=== PATIENT | male | born 1940 | race African-American/Black ===

== ENCOUNTER 2017-08-11 03:45 | Emergency (ER) | payer MEDICARE ==
[2017-08-11 05:03] LABS: #Eosinphils 0.1 thou/uL (0.0-0.7); #Lymphocytes 1.4 thou/uL (1.20-3.40); #Monocytes 0.5 thou/uL (0.11-0.59); #Neutrophils 1.8 thou/uL (1.40-6.50); %Basophils 1.1 % (0.0-1.0); %Eosinophils 1.6 % (0.0-10.0); %Lymphocytes 37.9 % (21.0-51.0); Hematocrit 36.5 % (42.0-52.0); Mean Platelet Volume 7.3 fL (7.4-10.4); Red Blood Cell (RBC) Count 3.76 mill/uL (4.70-6.10); White Blood Cell (WBC) Count 3.8 thou/uL (4.8-10.8)
[2017-08-11 05:13] LABS: Bilirubin Negative (Negative); Blood, Urine Negative (Negative); Glucose, Urine (Dipstick) Negative (Negative); Ketone, Urine Negative (Negative)
[2017-08-11 05:14] LABS: Nitrite Negative (Negative); Protein, Urine (Dipstick) Negative (Neg-Trace)
[2017-08-11 05:14] LABS: Anion Gap 12 mmol/L (10-20); BUN (Urea Nitrogen) 9 mg/dL (8.4-25.7); Calc. Creatinine Clearance 0 mL/min (70-130); Calcium 9.8 mg/dL (7.8-10.44); Carbon Dioxide 25 mmol/L (23-31); Chloride 105 mmol/L (98-107); Estimated GFR-MDRD Greater than 90
[2017-08-11 05:32] LABS: Bacteria/HPF None Seen HPF (None Seen); Hyaline Casts/LPF 0-3 HYALINE CAST LPF (0-3 Hyaline); Squamous Epithelial 0-3 HPF (0-3); WBC/HPF 0-3 HPF (0-3)
== END 2017-08-11 07:14 | disposition home or self-care (01) ==
LOC: ERS 03:45
DX: Z03.89 Encounter for observation for other suspected diseases and conditions ruled out (principal); E78.5 Hyperlipidemia, unspecified; I10 Essential (primary) hypertension; F03.90 Unspecified dementia, unspecified severity, without behavioral disturbance, psychotic disturbance, mood disturbance, and anxiety; F41.9 Anxiety disorder, unspecified; F31.9 Bipolar disorder, unspecified; F20.9 Schizophrenia, unspecified; N40.0 Benign prostatic hyperplasia without lower urinary tract symptoms; Z79.82 Long term (current) use of aspirin; Z79.899 Other long term (current) drug therapy
CPT/HCPCS: 36415; 80048; 81003; 81015; 85025; 99285

== ENCOUNTER 2017-08-13 02:49 | Emergency (ER) | payer MEDICARE ==
[2017-08-13 03:32] LABS: #Lymphocytes 1.3 thou/uL (1.20-3.40); #Monocytes 0.5 thou/uL (0.11-0.59); #Neutrophils 1.6 thou/uL (1.40-6.50); %Basophils 0.8 % (0.0-1.0); %Eosinophils 1.3 % (0.0-10.0); %Lymphocytes 38.7 % (21.0-51.0); %Monocytes 13.5 % (0.0-10.0); Hematocrit 36.4 % (42.0-52.0); Red Blood Cell (RBC) Count 3.75 mill/uL (4.70-6.10); White Blood Cell (WBC) Count 3.5 thou/uL (4.8-10.8)
[2017-08-13 03:54] LABS: ALT (SGPT) 12 U/L (8-55); AST (SGOT) 23 U/L (5-34); Acetaminophen Less than 6.0 mcg/mL (10.0-30.0); Alkaline Phosphatase 50 U/L (40-150); Anion Gap 12 mmol/L (10-20); BUN (Urea Nitrogen) 10 mg/dL (8.4-25.7); Bilirubin, Total 0.9 mg/dL (0.2-1.2); Calc. Creatinine Clearance 0 mL/min (70-130); Calcium 9.8 mg/dL (7.8-10.44); Carbon Dioxide 24 mmol/L (23-31); Chloride 105 mmol/L (98-107); Estimated GFR-MDRD Greater than 90; Globulin 2.8 g/dL (2.4-3.5); Protein, Total 6.4 g/dL (5.8-8.1); Salicylate Less than 8.0 mg/dL (15.0-30.0)
[2017-08-13 03:58] LABS: Troponin I 0.016 ng/mL (< 0.028)
[2017-08-13 05:24] LABS: Bilirubin Negative (Negative); Blood, Urine Negative (Negative); Glucose, Urine (Dipstick) Negative (Negative); Ketone, Urine Negative (Negative); Nitrite Negative (Negative); Protein, Urine (Dipstick) Negative (Neg-Trace)
[2017-08-13 05:44] LABS: Bacteria/HPF None Seen HPF (None Seen); Hyaline Casts/LPF 4-6 HYALINE CAST LPF (0-3 Hyaline); RBC/HPF 0-3 HPF (0-3); Squamous Epithelial 0-3 HPF (0-3)
[2017-08-13 06:06] LABS: Amphetamine Not Detected (NotDetected); Methadone Not Detected (NotDetected); Methamphetamine Not Detected (NotDetected)
[2017-08-13] MEDS ORDERED: SODIUM CHLORIDE 0.9% IVPB SCH (06:15)
[2017-08-13] MEDS ORDERED: VALPROATE SODIUM IVPB SCH (06:15)
--- NOTE | 2017-08-17 14:20 | EKG ---
Test Reason : Blood Pressure : / mmHG Vent. Rate : 054 BPM Atrial Rate : 054 BPM P-R Int : 164 ms QRS Dur : 108 ms QT Int : 440 ms P-R-T Axes : 014 -20 016 degrees QTc Int : 417 ms Sinus bradycardia Nonspecific T wave abnormality Abnormal ECG Confirmed by PATRICK DEL REAL, MARTHA Lehman ([id number]), social media editor HAILEY SALAZAR ([id number]) on 08/17/2017 2:20:35 PM Referred By: Confirmed By:MARTHA NGUYEN MD
== END 2017-08-13 08:34 | disposition home or self-care (01) ==
LOC: ERS 02:49
DX: R41.82 Altered mental status, unspecified (principal); E78.5 Hyperlipidemia, unspecified; F01.50 Vascular dementia, unspecified severity, without behavioral disturbance, psychotic disturbance, mood disturbance, and anxiety; F31.9 Bipolar disorder, unspecified; F41.9 Anxiety disorder, unspecified; F20.9 Schizophrenia, unspecified; I10 Essential (primary) hypertension; I70.90 Unspecified atherosclerosis; M16.10 Unilateral primary osteoarthritis, unspecified hip; Z79.899 Other long term (current) drug therapy; Z79.82 Long term (current) use of aspirin
CPT/HCPCS: 36415; 80053; 80164; 80306; 80307; 81003; 81015; 82550; 82553; 84443; 84484; 85025; 93005; 96365; J7050

== ENCOUNTER 2017-08-17 10:45 | Emergency (ER) | payer MEDICARE ==
[2017-08-17 12:29] LABS: #Lymphocytes 1.2 thou/uL (1.20-3.40); #Monocytes 0.5 thou/uL (0.11-0.59); #Neutrophils 1.9 thou/uL (1.40-6.50); %Basophils 1.2 % (0.0-1.0); %Eosinophils 1.1 % (0.0-10.0); %Lymphocytes 32.6 % (21.0-51.0); %Monocytes 14.2 % (0.0-10.0); Hematocrit 38.3 % (42.0-52.0); Mean Platelet Volume 6.6 fL (7.4-10.4); Red Blood Cell (RBC) Count 3.95 mill/uL (4.70-6.10); White Blood Cell (WBC) Count 3.7 thou/uL (4.8-10.8)
[2017-08-17 12:56] LABS: ALT (SGPT) 19 U/L (8-55); AST (SGOT) 30 U/L (5-34); Acetaminophen Less than 6.0 mcg/mL (10.0-30.0); Alkaline Phosphatase 54 U/L (40-150); Anion Gap 12 mmol/L (10-20); BUN (Urea Nitrogen) 9 mg/dL (8.4-25.7); CK (CPK) 374 U/L (30-200); Calc. Creatinine Clearance 0 mL/min (70-130); Calcium 10.2 mg/dL (7.8-10.44); Carbon Dioxide 27 mmol/L (23-31); Chloride 104 mmol/L (98-107); Estimated GFR-MDRD Greater than 90; Globulin 2.8 g/dL (2.4-3.5); Protein, Total 6.6 g/dL (5.8-8.1); Salicylate Less than 8.0 mg/dL (15.0-30.0)
[2017-08-17 13:34] LABS: Bilirubin Negative (Negative); Blood, Urine Negative (Negative); Glucose, Urine (Dipstick) Negative (Negative); Ketone, Urine Negative (Negative); Nitrite Negative (Negative); Protein, Urine (Dipstick) Negative (Neg-Trace)
[2017-08-17 13:49] LABS: Amphetamine Not Detected (NotDetected); Methadone Not Detected (NotDetected); Methamphetamine Not Detected (NotDetected)
[2017-08-17] MEDS ORDERED: Simvastatin 5 MG TAB PO SCH (22:00)
[2017-08-17] MEDS ORDERED: Cilostazol 100 MG TAB PO SCH (22:00)
[2017-08-17] MEDS ORDERED: CeleCOXIB 100 MG CAP PO SCH (22:00)
[2017-08-17] MEDS ORDERED: Polyethylene Glycol 3350 17 GM Packet PO SCH (22:00)
[2017-08-18] MEDS ORDERED: Lorazepam 1 MG TAB ONE ×3 (06:49→14:33)
[2017-08-18] MEDS ORDERED: Aripiprazole 15 MG TAB PO SCH (09:00)
[2017-08-18] MEDS ORDERED: tiZANidine HCl 4 MG TAB PO SCH (09:00)
[2017-08-18] MEDS ORDERED: Metoprolol Tartrate 25 MG TAB PO SCH (09:00)
[2017-08-18] MEDS ORDERED: Lisinopril 10 MG TAB PO SCH (09:00)
[2017-08-18] MEDS ORDERED: Fluticasone Propionate Nasal Spray 16 gm Bottle NASAL SCH (09:00)
[2017-08-18] MEDS ORDERED: Tamsulosin HCl 0.4 MG CAP PO SCH (09:00)
[2017-08-18] MEDS ORDERED: Cilostazol 100 MG TAB PO SCH (09:00)
[2017-08-18] MEDS ORDERED: risperiDONE 0.25 MG TAB PO SCH (09:00)
[2017-08-18] MEDS ORDERED: Folic Acid/Vit B Comp W-C PO SCH (09:00)
[2017-08-18] MEDS ORDERED: Lorazepam 0.5 MG TAB PO SCH (12:00)
[2017-08-18] MEDS ORDERED: Metoprolol Tartrate 25 MG TAB ONE ×2 (12:01→12:04)
[2017-08-18] MEDS ORDERED: CeleCOXIB 100 MG CAP PO SCH (21:00)
[2017-08-18] MEDS ORDERED: Simvastatin 5 MG TAB PO SCH (21:00)
[2017-08-19] MEDS ORDERED: Metoprolol Tartrate 25 MG TAB ONE (11:30)
[2017-08-19] MEDS ORDERED: tiZANidine HCl 4 MG TAB PO SCH (13:15)
[2017-08-20] MEDS ORDERED: Lorazepam 1 MG TAB ONE (12:56)
[2017-08-20] MEDS ORDERED: Aspirin 81 mg Enteric Coated Tablet ONE (12:57)
[2017-08-20] MEDS ORDERED: Metoprolol Tartrate 25 MG TAB ONE (12:57)
[2017-08-20] MEDS ORDERED: risperiDONE 1 MG TAB ONE (12:57)
[2017-08-21] MEDS ORDERED: Lorazepam 1 MG TAB ONE (13:18)
[2017-08-21] MEDS ORDERED: Metoprolol Tartrate 25 MG TAB ONE (13:18)
[2017-08-22] MEDS ORDERED: Lorazepam 1 MG TAB ONE (04:16)
[2017-08-22] MEDS ORDERED: Ibuprofen 200 MG TAB ONE (05:13)
[2017-08-22] MEDS ORDERED: Metoprolol Tartrate 5 MG/5 ML VIAL ONE (10:22)
[2017-08-22] MEDS ORDERED: Metoprolol Tartrate 25 MG TAB ONE (10:22)
[2017-08-22 10:36] LABS: Hematocrit 38.3 % (42.0-52.0); Mean Platelet Volume 7.7 fL (7.4-10.4); Red Blood Cell (RBC) Count 3.86 mill/uL (4.70-6.10); White Blood Cell (WBC) Count 2.7 thou/uL (4.8-10.8)
[2017-08-22 11:00] LABS: ALT (SGPT) 17 U/L (8-55); AST (SGOT) 34 U/L (5-34); Alkaline Phosphatase 52 U/L (40-150); Anion Gap 10 mmol/L (10-20); BUN (Urea Nitrogen) 10 mg/dL (8.4-25.7); Bilirubin, Total 0.9 mg/dL (0.2-1.2); Calc. Creatinine Clearance 0 mL/min (70-130); Calcium 10.3 mg/dL (7.8-10.44); Carbon Dioxide 29 mmol/L (23-31); Chloride 103 mmol/L (98-107); Estimated GFR-MDRD Greater than 90; Globulin 2.8 g/dL (2.4-3.5); Protein, Total 6.5 g/dL (5.8-8.1)
[2017-08-22 11:14] LABS: Band 1 % (5-11); Neutrophil 36 % (42-75); Reactive Lymphocytes 1 % (0-10)
[2017-08-23] MEDS ORDERED: Metoprolol Tartrate 25 MG TAB ONE (08:59)
== END 2017-08-23 18:38 ==
LOC: ERS 10:45
DX: F22 Delusional disorders (principal); E78.5 Hyperlipidemia, unspecified; F20.9 Schizophrenia, unspecified; F31.9 Bipolar disorder, unspecified; F41.9 Anxiety disorder, unspecified; F01.50 Vascular dementia, unspecified severity, without behavioral disturbance, psychotic disturbance, mood disturbance, and anxiety; I10 Essential (primary) hypertension; I70.90 Unspecified atherosclerosis; M19.90 Unspecified osteoarthritis, unspecified site; N40.0 Benign prostatic hyperplasia without lower urinary tract symptoms; Z79.899 Other long term (current) drug therapy; Z79.82 Long term (current) use of aspirin; Z79.52 Long term (current) use of systemic steroids
CPT/HCPCS: 36415; 80053; 80306; 80307; 81003; 82550; 84443; 85025; 99285

== ENCOUNTER 2018-01-17 05:58 | Emergency (ER) | payer MEDICAID, MEDICARE ==
[2018-01-17 07:27] LABS: Bilirubin Negative (Negative); Blood, Urine Negative (Negative); Clarity CLEAR (Clear); Glucose, Urine (Dipstick) Negative (Negative); Leukocyte Trace (Negative); Nitrite Negative (Negative); Protein, Urine (Dipstick) Negative (Neg-Trace); Specific Gravity, Urine 1.014 (1.002-1.036)
[2018-01-17 07:28] LABS: Bacteria/HPF None Seen HPF (None Seen); Hyaline Casts/LPF 0-3 HYALINE CAST LPF (0-3 Hyaline); RBC/HPF 0-3 HPF (0-3); Squamous Epithelial None Seen HPF (0-3); WBC/HPF 0-3 HPF (0-3)
[2018-01-17 07:29] LABS: Eosinophils 2 % (0-10); Lymphocytes 40 % (21-51); MDiff Complete? YES; Mean Corpuscular HGB CONC 33.3 g/dL (32.0-36.0); Mean Corpuscular Hemoglobin 32.4 pg (27.0-31.0); Mean Corpuscular Volume 97.4 fl (80.0-94.0); Mean Platelet Volume 7.7 fL (7.4-10.4); Monocytes 13 % (0-10); Neutrophil 45 % (42-75); PLT Morphology Comment Appears Decreased; Platelet Count 108 thou/uL (130-400); RBC Distribution Width 12.6 % (11.5-14.5); RBC Morphology Normal; Red Blood Cell (RBC) Count 4.01 mill/uL (4.70-6.10); White Blood Cell (WBC) Count 4.4 thou/uL (4.8-10.8)
[2018-01-17 07:37] LABS: ALT (SGPT) 11 U/L (8-55); AST (SGOT) 24 U/L (5-34); Acetaminophen Less than 6.0 mcg/mL (10.0-30.0); Albumin 3.9 g/dL (3.4-4.8); Alcohol Less than 10 mg/dL (Less than 10); Alkaline Phosphatase 64 U/L (40-150); Anion Gap 10 mmol/L (10-20); BUN (Urea Nitrogen) 20 mg/dL (8.4-25.7); Bilirubin, Total 0.5 mg/dL (0.2-1.2); Calc. Creatinine Clearance 0 mL/min (70-130); Carbon Dioxide 28 mmol/L (23-31); Chloride 105 mmol/L (98-107); Estimated GFR-MDRD 85; Globulin 3.3 g/dL (2.4-3.5); Glucose 84 mg/dL (83-110); Potassium 4.8 mmol/L (3.5-5.1); Protein, Total 7.2 g/dL (5.8-8.1); Salicylate Less than 8.0 mg/dL (15.0-30.0); Sodium 138 mmol/L (136-145)
[2018-01-17 07:37] LABS: Amphetamine Not Detected (NotDetected); Barbiturates Screen Not Detected (NotDetected); Benzodiazepine Screen Detected (NotDetected); Cocaine Metabolite Screen Not Detected (NotDetected); Medtox Reader # READER 1; Methadone Not Detected (NotDetected); Methamphetamine Not Detected (NotDetected); Opiate Screen Not Detected (NotDetected); Oxycodone Screen Not Detected (NotDetected); Phencyclidine (PCP) Not Detected (NotDetected); THC/Cannabinoid Screen Not Detected (NotDetected); Tricyclic Screen Not Detected (NotDetected)
[2018-01-17 07:38] LABS: Medtox Control Line Valid? VALID (VALID)
[2018-01-17] MEDS ORDERED: Lorazepam 1 MG TAB ONE (09:51)
== END 2018-01-17 10:13 ==
LOC: ERS 05:58
DX: Z91.14 Patient's other noncompliance with medication regimen (principal); E78.5 Hyperlipidemia, unspecified; I10 Essential (primary) hypertension; F41.9 Anxiety disorder, unspecified; F31.9 Bipolar disorder, unspecified; F20.9 Schizophrenia, unspecified; N40.0 Benign prostatic hyperplasia without lower urinary tract symptoms; Z79.899 Other long term (current) drug therapy
CPT/HCPCS: 36415; 80053; 80306; 80307; 81003; 81015; 85025; 99285